=== PATIENT | male | born 2000 | race Two or more races ===

== ENCOUNTER 2021-06-25 12:05 | Emergency (ER) | payer OTHER, SELFPAY ==
--- NOTE | ~2021-06-25 | CT_ITS ---
CT head/brain wo con CLINICAL INFORMATION: Reason for Exam trauma COMPARISON: No prior CT scan available for comparison. TECHNIQUE: Department standard protocol. This CT examination was performed using dose optimization techniques as appropriate, variously including the following: *Automated exposure control *Adjustment of mA and/or kV according to patient size (this includes techniques or standardized protocols for targeted exams where dose is matched to indication/reason for exam; i.e. extremities or head) *Use of iterative reconstruction technique DLP: 6 and 21 mGy-cm FINDINGS: CEREBRAL HEMISPHERES: There is no evidence of intra-axial or extra-axial mass, hemorrhage or acute infarct. BRAIN PARENCHYMA: Normal valderrama-white matter differentiation. SUBDURAL SPACE: No bleed. BASAL GANGLIA AND PINEAL GLAND: Unremarkable VENTRICLES: Symmetric and normal in size. CEREBELLUM AND BRAINSTEM: No space-occupying mass, hemorrhage or acute infarct. CEREBELLOPONTINE ANGLES: No lesion found. ORBITS: No intraorbital mass. VESSELS: Unremarkable SKULL BASE: Unremarkable INCLUDED SINUSES AT SKULL BASE: Clear SKULL AND SKIN: No fracture or bone lesion found. CT/CT head/brain wo con IMPRESSION: Normal head CT. No CT evidence of acute intracranial bleed or injury.
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
--- NOTE | ~2021-06-25 | CT_ITS ---
EXAMINATION: CT CERVICAL SPINE WITHOUT CONTRAST CLINICAL INFORMATION: Trauma COMPARISON: None TECHNIQUE: Noncontrast CT scan, Department standard protocol. This CT examination was performed using dose optimization techniques as appropriate, variously including the following: *Automated exposure control *Adjustment of mA and/or kV according to patient size (this includes techniques or standardized protocols for targeted exams where dose is matched to indication/reason for exam; i.e. extremities or head) *Use of iterative reconstruction technique DLP: 328 mGy-cm FINDINGS: 7 cervical vertebrae identified containing a proper height and alignment. Included structures at skull base and occipital condyles are intact. Visualized sinuses and skull base are clear. There is a radiolucent line through the right pedicle of C3 image 136 series 11, peripheral sclerotic borders suggesting most likely a nutrient channel, fracture felt to be less likely. No CT evidence of cervical injury. Paravertebral soft tissues unremarkable. Included lung apices are clear. Spinal levels: C2-C3: Normal. C3-C4: Normal. C4-C5: Normal. C5-C6: Normal. C6-C7: Normal. C7-T1: Normal. CT/CT cervical spine wo con IMPRESSION: There is no definite evidence of acute fracture. There is a transverse radiolucent line through the right pedicle of C3, this is seen on one image only, bordered by well defined sclerotic borders favoring asymmetric physiologic prominent nutrient channel over true fracture. However if this is a high impact injury, may consider confirmation with MRI if clinically indicated.
[2021-06-25 13:42] VITALS: BP 139/68; PULSE 80; RESP 17; TEMP 36.6; O2SAT 99; BMI 20.7
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
[2021-06-25] MEDS: Ibuprofen 600 MG TABLET PO (16:59)
[2021-06-25] MEDS: Acetaminophen 325 MG TABLET 650 MG PO (17:00)
[2021-06-25 17:33] VITALS: BP 125/57; PULSE 76; RESP 18; O2SAT 99
--- NOTE | 2021-06-25 19:20 | PC.NURSE ---
call to [facility] transfer line @[phone]
[2021-06-25 20:09] LABS: COVID-19 Test Negative (Negative)
[2021-06-25 22:40] VITALS: BP 128/75; PULSE 82; RESP 16; TEMP 36.8; O2SAT 100
== END 2021-06-25 22:41 | disposition home or self-care (01) ==
PROVIDERS: Physician Assistant; Emergency Provider Emergency Medicine Emergency Medical Services
DX: S06.0X0A Concussion without loss of consciousness, initial encounter (principal); R11.0 Nausea; M50.322 Other cervical disc degeneration at C5-C6 level; M47.812 Spondylosis without myelopathy or radiculopathy, cervical region; W03.XXXA Other fall on same level due to collision with another person, initial encounter; Y93.9 Activity, unspecified; Y92.512 Supermarket, store or market as the place of occurrence of the external cause; Y99.0 Civilian activity done for income or pay; Z20.822 Contact with and (suspected) exposure to COVID-19
CPT/HCPCS: 36415; 70450; 72125; 72141; 87635; 99284; 99285